=== PATIENT | female | born 1965 | race Two or more races ===

== ENCOUNTER 2020-10-28 14:15 | Outpatient (CLI) | payer OTHER ==
[~2020-10-28 14:15] MED LIST: CLONAZEPAM1 M1
== END 2020-10-28 14:51 | disposition home or self-care (01) ==
LOC: MAMO-SONO 14:15
PROVIDERS: ATTEND Obstetrics & Gynecology
DX: Z12.31 Encounter for screening mammogram for malignant neoplasm of breast (principal); N60.11 Diffuse cystic mastopathy of right breast; N60.12 Diffuse cystic mastopathy of left breast

== ENCOUNTER 2021-07-25 13:15 | Outpatient (CLI) | payer OTHER | END 2021-07-25 13:24 | disposition home or self-care (01) | LOC: RAD 13:15 | PROVIDERS: ATTEND Physical Medicine & Rehabilitation | DX: M25.571 Pain in right ankle and joints of right foot (principal); S93.401A Sprain of unspecified ligament of right ankle, initial encounter ==

== ENCOUNTER 2021-11-10 13:27 | Outpatient (CLI) | payer OTHER | END 2021-11-10 14:03 | disposition home or self-care (01) | LOC: MAMO-SONO 13:27 | PROVIDERS: ATTEND Obstetrics & Gynecology | DX: N60.11 Diffuse cystic mastopathy of right breast (principal); N60.12 Diffuse cystic mastopathy of left breast; Z12.31 Encounter for screening mammogram for malignant neoplasm of breast; E04.1 Nontoxic single thyroid nodule; N92.1 Excessive and frequent menstruation with irregular cycle; R10.84 Generalized abdominal pain ==

== ENCOUNTER 2021-12-08 09:26 | Outpatient (CLI) | payer OTHER | END 2021-12-08 10:05 | disposition home or self-care (01) | LOC: SONOGRAMA 09:26 | PROVIDERS: ATTEND Obstetrics & Gynecology | DX: R10.9 Unspecified abdominal pain (principal); N92.1 Excessive and frequent menstruation with irregular cycle ==

== ENCOUNTER 2022-01-03 13:56 | Outpatient (CLI) | payer OTHER | END 2022-01-03 14:05 | disposition home or self-care (01) | LOC: RAD 13:56 | PROVIDERS: ATTEND Physical Medicine & Rehabilitation | DX: M54.50 Low back pain, unspecified (principal); M16.11 Unilateral primary osteoarthritis, right hip ==

== ENCOUNTER 2023-04-04 12:22 | Outpatient (CLI) | payer OTHER | END 2023-04-04 12:30 | disposition home or self-care (01) | LOC: RAD 12:22 | DX: S13.4XXA Sprain of ligaments of cervical spine, initial encounter (principal); S09.90XA Unspecified injury of head, initial encounter ==

== ENCOUNTER 2023-05-22 10:39 | Outpatient (CLI) | payer OTHER | END 2023-05-22 10:57 | disposition home or self-care (01) | LOC: SONOGRAMA 10:39 | PROVIDERS: ATTEND Physical Medicine & Rehabilitation | DX: M25.572 Pain in left ankle and joints of left foot (principal); Z00.00 Encounter for general adult medical examination without abnormal findings ==